=== PATIENT | female | born 1980 | race Caucasian/White ===

== ENCOUNTER 2018-10-15 14:18 | Emergency (ER) | payer MEDICAID ==
[~2018-10-15] VITALS: Ht 175.3 cm; Wt 100.0 kg
[2018-10-15 14:42] VITALS: Ht 175.3 cm; Wt 100.0 kg
[2018-10-15 15:07] LABS: BASOPHILS 0.3 % (0-2); EOSINOPHILS 0.8 % (0-7); HEMATOCRIT 44.7 % (36.0-48.0); IMMATURE GRANULOCYTES 0.2 % (0-5); LYMPHOCYTES 9.3 % (15-50); MCH 29.3 pg (26.0-34.0); MCHC 33.6 g/dL (31.0-37.0); MCV 87.3 fL (80.0-100.0); MEAN PLATELET VOLUME 10.2 fL (7.4-10.4); MONOCYTES 7.8 % (2-11); NEUTROPHILS 81.6 % (40-80); PLATELET COUNT 269 10x3/uL (130-400); RBC 5.12 10x6/uL (4.00-5.40); RDW 12.4 % (11.5-14.5); WBC 10.6 10x3/uL (4.8-10.8)
[2018-10-15 15:19] LABS: APPEARANCE CLEAR (CLEAR); BILIRUBIN NEGATIVE (NEGATIVE); COLOR YELLOW (YELLOW); GLUCOSE NEGATIVE (NEGATIVE); KETONE NEGATIVE (NEGATIVE); NITRITE NEGATIVE (NEGATIVE); PROTEIN NEGATIVE (NEGATIVE); SPECIFIC GRAVITY 1.015 (1.005-1.020); UROBILINOGEN NORMAL (NORMAL)
[2018-10-15 15:22] LABS: ALBUMIN 3.9 g/dL (3.4-5.0); ANION GAP 14.5 mmol/L (8-16); BILIRUBIN - TOTAL 0.68 mg/dL (0.2-1.3); CALCIUM 8.7 mg/dL (8.5-10.1); CARBON DIOXIDE 27.1 mmol/L (21.0-32.0); CREATININE - SERUM 0.9 mg/dL (0.6-1.3); POTASSIUM - SERUM 3.6 mmol/L (3.5-5.1); PROTEIN - SERUM 7.7 g/dL (6.4-8.2)
[2018-10-15] MEDS ORDERED: SYMBICORT 16010.2 GM INH (16:03)
[2018-10-15] MEDS ORDERED: OMNICEF300 MG PO (16:03)
[2018-10-15 16:18] VITALS: BP 126/72
== END 2018-10-15 16:16 | disposition home or self-care (01) ==
LOC: D.ER 14:18
PROVIDERS: Family Medicine
DX: J01.90 Acute sinusitis, unspecified (principal); J40 Bronchitis, not specified as acute or chronic; F17.200 Nicotine dependence, unspecified, uncomplicated; R05 Cough

== ENCOUNTER 2019-07-04 21:13 | Emergency (ER) | payer MEDICAID ==
[~2019-07-04] VITALS: Ht 175.3 cm; Wt 104.5 kg
[~2019-07-04 21:13] MED LIST: OMNICEF300 MG PO; SYMBICORT 16010.2 GM INH
[2019-07-04 21:31] VITALS: Ht 175.3 cm; Wt 104.5 kg
[2019-07-04] MEDS ORDERED: NAPROSYN500 MG PO (22:04)
[2019-07-04 22:33] VITALS: BP 129/80
== END 2019-07-04 22:33 | disposition home or self-care (01) ==
LOC: D.ER 21:13
DX: S46.912A Strain of unspecified muscle, fascia and tendon at shoulder and upper arm level, left arm, initial encounter (principal); X58.XXXA Exposure to other specified factors, initial encounter

== ENCOUNTER 2019-07-28 14:47 | Emergency (ER) | payer MEDICAID ==
[~2019-07-28] VITALS: Ht 175.3 cm; Wt 105.0 kg
[~2019-07-28 14:47] MED LIST changes: +NAPROSYN500 MG PO
[2019-07-28 14:59] VITALS: Ht 175.3 cm; Wt 105.0 kg
[2019-07-28] MEDS ORDERED: VOLTAREN75 MG PO (16:17)
[2019-07-28] MEDS ORDERED: PREDNISONE20 MG PO (16:17)
[2019-07-28 17:00] VITALS: BP 130/77
== END 2019-07-28 17:00 | disposition home or self-care (01) ==
LOC: D.ER 14:47
DX: M25.512 Pain in left shoulder (principal); M75.52 Bursitis of left shoulder

== ENCOUNTER 2019-09-23 17:17 | Emergency (ER) | payer OTHER ==
[~2019-09-23] VITALS: Ht 175.3 cm; Wt 100.0 kg
[~2019-09-23 17:17] MED LIST changes: +PREDNISONE20 MG PO; +VOLTAREN75 MG PO
[2019-09-23 17:23] VITALS: Ht 175.3 cm; Wt 100.0 kg
[2019-09-23] MEDS ORDERED: AUGMENTIN 875-11 TAB PO (19:05)
[2019-09-23 19:25] VITALS: BP 113/73
== END 2019-09-23 19:25 | disposition home or self-care (01) ==
LOC: D.ER 17:17
DX: H66.91 Otitis media, unspecified, right ear (principal); Z72.0 Tobacco use

== ENCOUNTER 2019-10-20 22:16 | Emergency (ER) | payer OTHER ==
[~2019-10-20] VITALS: Ht 175.3 cm; Wt 100.0 kg
[~2019-10-20 22:16] MED LIST changes: +AUGMENTIN 875-11 TAB PO
[2019-10-20 22:31] VITALS: Ht 175.3 cm; Wt 100.0 kg
[2019-10-21] MEDS ORDERED: TORADOL10 MG PO (00:41)
[2019-10-21] MEDS ORDERED: CLEOCIN HCL300 MG PO (00:41)
[2019-10-21 00:54] VITALS: BP 125/85
== END 2019-10-21 00:55 | disposition home or self-care (01) ==
LOC: D.ER 22:16
DX: H66.91 Otitis media, unspecified, right ear (principal); J45.909 Unspecified asthma, uncomplicated; Z72.0 Tobacco use

== ENCOUNTER 2020-03-18 22:23 | Emergency (ER) | payer OTHER ==
[~2020-03-18] VITALS: Ht 175.3 cm; Wt 102.3 kg
[~2020-03-18 22:23] MED LIST changes: +CLEOCIN HCL300 MG PO; +TORADOL10 MG PO
[2020-03-18 22:28] VITALS: Ht 175.3 cm; Wt 102.3 kg
[2020-03-18] MEDS ORDERED: NAPROSYN500 MG PO (23:49)
[2020-03-18] MEDS ORDERED: HYDROCODON-ACE1 EA10 PO (23:49)
[2020-03-19 00:24] VITALS: BP 132/92
== END 2020-03-19 00:22 | disposition home or self-care (01) ==
LOC: D.ER 22:23
DX: S46.002A Unspecified injury of muscle(s) and tendon(s) of the rotator cuff of left shoulder, initial encounter (principal); N60.19 Diffuse cystic mastopathy of unspecified breast; J45.909 Unspecified asthma, uncomplicated; Z72.0 Tobacco use

== ENCOUNTER 2020-04-23 21:33 | Emergency (ER) | payer OTHER ==
[~2020-04-23] VITALS: Ht 175.3 cm; Wt 90.9 kg
[~2020-04-23 21:33] MED LIST changes: +HYDROCODON-ACE1 EA10 PO
[2020-04-23 21:40] VITALS: Ht 175.3 cm; Wt 90.9 kg
[2020-04-23] MEDS ORDERED: SILVADENE20 GM TP (21:51)
[2020-04-23] MEDS ORDERED: TYLENOL W/CODEI1 TAB PO (21:51)
[2020-04-23 22:15] VITALS: BP 129/86
== END 2020-04-23 22:15 | disposition home or self-care (01) ==
LOC: D.ER 21:33
DX: T23.101A Burn of first degree of right hand, unspecified site, initial encounter (principal); X12.XXXA Contact with other hot fluids, initial encounter; Y93.9 Activity, unspecified; Y92.9 Unspecified place or not applicable